=== PATIENT | male | born 1970 | race Caucasian/White ===

== ENCOUNTER 2019-01-20 10:47 | Outpatient (CLI) | payer OTHER | END 2019-01-20 10:55 | disposition home or self-care (01) | LOC: LAB 10:47 | DX: N39.0 Urinary tract infection, site not specified (principal); R10.9 Unspecified abdominal pain ==

== ENCOUNTER 2019-01-21 07:19 | Outpatient (CLI) | payer OTHER | END 2019-01-21 07:27 | disposition home or self-care (01) | LOC: TOM 07:19 | DX: K57.30 Diverticulosis of large intestine without perforation or abscess without bleeding (principal); R10.9 Unspecified abdominal pain ==